=== PATIENT | female | born 1945 | race Caucasian/White ===

== ENCOUNTER 2018-09-12 07:44 | Day surgery (SDC) | payer MEDICARE, OTHER, SELFPAY ==
--- NOTE | 2018-09-12 08:02 | EKG12_ITS ---
Test Reason : PRE OP Blood Pressure : / mmHG Vent. Rate : 065 BPM Atrial Rate : 065 BPM P-R Int : 154 ms QRS Dur : 080 ms QT Int : 398 ms P-R-T Axes : 050 -22 013 degrees QTc Int : 413 ms Normal sinus rhythm with sinus arrhythmia Nonspecific ST abnormality Abnormal ECG Confirmed by PATRICIA HOWARD, JESSICA ([id number]), manuscript editor ROSA ELENA FISHER ([id number] on 09/14/2018 4:19:51 PM Referred By: Jyoti Seals Confirmed By:JESSICA GOMEZ MD
[2018-09-12 08:15] VITALS: BP 136/82; PULSE 71; RESP 14; TEMP 36.6; O2SAT 94; BMI 26.9
[2018-09-12 08:24] LABS: Prothrombin Time (Protime)PT. 13.6 SECONDS (11.7-14.9)
[2018-09-12 08:25] LABS: Partial Thromboplast Time 31.5 Seconds (24.1-36.2)
[2018-09-12 08:27] LABS: Hematocrit 34.7 % (37-47); Hemoglobin 11.3 g/dl (12.0-15.0); Mean Corp Hgb Conc 32.6 g/gl (32-36); Mean Corpuscular Hgb 19.3 pg (27.0-32.0); Mean Corpuscular Volume 59.2 fL (81-99); Mean Platelet Vol. 10.7 fl (6.2-12.0); RBC Distribution Width CV 19.1 % (11.6-14.6); RBC Distribution Width SD 37.4 fl (35.1-43.9); Red Blood Count 5.86 M/mm3 (4.2-5.4); White Blood Count 6.1 K/mm3 (4.4-11.0)
[2018-09-12 08:32] LABS: Anion Gap 10 (5-15); BUN 14 mg/dL (7-18); BUN/Creat Ratio 15.8 RATIO (10-20); Calcium,Total 8.9 mg/dL (8.5-10.1); Chloride 108 mmol/L (98-107); Creatinine, Serum 0.89 mg/dL (0.55-1.02); EST Glomerular Filtration Rate 67 mL/min (>60); Est Glom Filt Rate - Afr Amer 81 mL/min (>60); Estimated Creatinine Clearance 43.75 ml/min; Glucose 90 mg/dL (74-106); Potassium 3.8 mmol/L (3.5-5.1); Sodium Level 143 mmol/L (136-145)
[2018-09-12 08:35] LABS: Platelet Count 267 K/mm3 (150-450); Scan Indicated on CBC? Y/N YES- FLAGS NOTED
[2018-09-12] MEDS: Cefazolin 2 GM in 0.9% Normal Saline 100 ML IV (09:25)
[2018-09-12 09:50] VITALS: BP 136/82; BP 140/75; PULSE 82; RESP 16; TEMP 36.3; O2SAT 92
[2018-09-12 09:55] VITALS: BP 126/86; BP 136/82; PULSE 78; RESP 16; O2SAT 95
[2018-09-12 10:00] VITALS: BP 122/75; BP 136/82; PULSE 69; RESP 16; O2SAT 95
[2018-09-12 10:05] VITALS: BP 136/82; BP 139/77; PULSE 77; RESP 16; O2SAT 100
[2018-09-12 10:18] VITALS: BP 136/82
== END 2018-09-12 10:27 | disposition home or self-care (01) ==
LOC: SDC 07:46 → AC 07:49
PROVIDERS: Anesthesiology; Referring Provider Urology; Visit Provider Urology
PROC: (CPT 57260; principal; 2018-09-12 09:15)
DX: Z01.818 Encounter for other preprocedural examination (principal)
CPT/HCPCS: 36415; 80048; 85027; 85610; 85730; 93005; J7120

== ENCOUNTER 2018-09-15 11:03 | Observation (INO) | payer MEDICARE, OTHER, SELFPAY ==
[2018-09-15] VITALS (11 sets, daily range): BP systolic 92–139; BP diastolic 51–76; PULSE 58–95; RESP 14–18; TEMP 36.4–36.9; O2SAT 92–100; BMI 26.6; BMI 26.8
[2018-09-15] MEDS: Cefazolin 2 GM in 0.9% Normal Saline 100 ML IV (09:08)
[2018-09-15] MEDS: Lubricating Jelly 60 GM Tube 30 GM TOPICAL (09:30)
[2018-09-15] MEDS: Methylene Blue 1% 100 MG/10 ML VIAL (10:16)
[2018-09-15] MEDS: Estrogens,Conj. 1 Tube 1 DOSE (10:35)
--- NOTE | 2018-09-15 11:01 | OP.PCM_ITS ---
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 Post-Operative Diagnosis: same Surgery/Procedure Performed:: anterior repair with mesh, bilateral sacrospinous ligament fixation, midurethral sling insertion, cystoscopy. (Altis sling and Restorelle anterior wall mesh) Description of Surgical Findings:: The patient is a 73-year-old female presented to the office with multiple urologic issues including pelvic organ prolapse, stress incontinence, urge incontinence. After being fully evaluated with pelvic examination, urodynamics and cystoscopy, she agreed to proceed with surgical intervention. She was prepped for surgery using estrogen replacement for her vagina in addition to clear liquid diet and an enema. All risks benefits and alternatives were discussed in detail and she understood and agreed to proceed. The patient was taken to the operating room and placed on the operating room table. Anesthesia monitored the head, neck, airway, IV access, and vital signs throughout the case. Once anesthesia was appropriately administered the patient was prepped and draped in usual sterile fashion. An 18 [place] Barnes catheter was inserted to straight drain and the bladder was emptied. The anterior vaginal wall was identified, injected submucosally with 1% lidocaine with e pinephrine, and an incision was made in vertical fashion approximately 2-1/2 cm in length. Sharp and blunt dissection ensued until the ischial spines were palpable on either side and surrounding tissues were cleared and freed from the ligament. Using the Capio suturing device, the sacral spinous ligament was sutured to the mesh arms of the Restorelle mesh. The mesh was trimmed to fit Khloe Hallman's vagina. The apex of the vagina was attached to the mesh and sutured into place. The anterior portion of the mesh was then attached to the tissue surrounding the bladder neck and lateral fascia. The area was irrigated and the incision was closed using running interlocking 2-0 Vicryl suture. Attention was then turned towards the area of the mid urethra which was injected submucosally and a midline incision was made. Periurethral space was opened using blunt and sharp dissection. Using the trochars the alters mid urethral sling was then inserted into the obturator complexes bilaterally. The mesh was flat against the urethra without tension. This tensioning suture was cut in the midline incision was closed using running interlocking Vicryl. This time the Barnes catheter was removed and a cystourethroscopy was performed revealing bilateral blue ureteral jets. There were no foreign bodies within the urinary bladder including suture or mesh. There were no areas of hemorrhage. The cystoscope was removed and the Barnes catheter was replaced. The patient's vagina was packed with packing and estrogen cream. She was awakened and taken to the recovery room in good condition. biological sciences professor: bonny Type of Anesthesia:: General Special Medications: ancef, methylene blue, estrogen cream. Estimated Blood Loss (mL): 50cc Description of Procedure: no complications. see above. Grafts/Implants Used: Restorelle and Altis - Complications none - Admit VTE Documentation VTE Present on Admission: Yes VTE Mechan Device Prophylaxis: SCD's VTE Pharm Prophylaxis ordered?: No Reason prophylaxis not ordered:: Treatment Not Indicated
[2018-09-15] MEDS: Lactated Ringers 1,000 ML 100 ML IV ×2 (12:44→22:18)
[2018-09-15] MEDS: HYDROcodone Bitartrate/Apap 5/325 Tablet PO ×2 (14:41→21:00)
[2018-09-15] MEDS: Cefazolin 1 GM/50 ML BAG IV (16:46)
[2018-09-16] MEDS: Cefazolin 1 GM/50 ML BAG IV (01:43)
[2018-09-16 03:02] VITALS: BP 98/45; PULSE 82; RESP 16; TEMP 37.1; O2SAT 94
[2018-09-16] MEDS: HYDROcodone Bitartrate/Apap 5/325 Tablet PO ×2 (03:20→09:20)
[2018-09-16] MEDS: Lactated Ringers 1,000 ML 100 ML IV (08:30)
[2018-09-16 08:39] VITALS: BP 98/53; PULSE 71; RESP 16; TEMP 36.8; O2SAT 97
[2018-09-16 08:40] VITALS: PULSE 71
--- NOTE | 2018-09-16 08:43 | NURSING ---
Pt up to the bathroom and is unable to void. Notes bright red drainage in toilet. Pt does complain of pressure in vaginal/kings area. Pt is assisted to bed and checked for vaginal packing. Packing is present and it removed, single piece of dressing.
[2018-09-16] MEDS: Pantoprazole Sodium 40 MG Tablet PO (09:20)
[2018-09-16] MEDS: Enoxaparin 40 MG/0.4 ML Syringe SC (09:20)
--- NOTE | 2018-09-16 10:44 | PCM.PN.GU ---
Physical Exam Subjective: Feeling sore, but eating, drinking and walking ok. Has not voided yet, ready to go home after that. - Physical Exam Vital Signs Temp 98.2 F 09/16/18 08:39 Pulse 71 09/16/18 08:40 Resp 16 09/16/18 08:39 BP 98/53 L 09/16/18 08:39 Pulse Ox 97 09/16/18 08:39 Intake & Output 09/14/18 09/15/18 09/16/18 23:59 23:59 23:59 Intake Total 2299 / 2299 4 / 2064 Output Total 950 / 950 950 / 950 Balance 1349 / 1349 1114 / 1114 Weight: 64.5 kg Intake: Oral 200 / 200 700 / 700 IV fluid/meds 2098 1364 / 1364 IV #2 1700 / 1700 Output: Urine 950 / 950 950 / 950 General: Alert, Oriented x3, Cooperative, No apparent distress HEENT: Atraumatic, Normocephalic Oral: Moist Mucosa Neck: Supple Abdomen: Soft, Non Tender Extremities: No clubbing, No edema Skin: No rashes Musculoskeletal: No Tenderness to Palpation of Joints or Extremities, - - tender in right buttocks and left thigh, due to positioning and likely also the sacrospinous ligament fixation. Neurological: Cranial nerves II-XII grossly intact Psych/Mental Status: Normal Affect Medical Necessity - Tobacco Use Smoking Status: Never smoker Assessment/Plan All Active Problems Cystocele (Acute) Vaginal enterocele (Acute) Vaginal vault prolapse (Acute) Urethral hypermobility (Acute) Stress incontinence (Acute) Complete trial of void. Home today without or with belle. Call for appt in office.
--- NOTE | 2018-09-16 10:50 | PCM.DC.URO ---
Discharge Diet: No Restrictions Discharge Activity: May Not Drive, May not drive while taking narcotic pain medications., May Shower, - - May not take a tub bath. Nothing per vagina except estrogen cream is to be placed on sutures 3 times a week. No exersize or strenuous activity May resume sexual activity in: 8 weeks Lifting Restrictions: no lifting over 5 pounds including pulling and pushing Call your doctor if your incision/area has: Sudden Increased Bleeding, Foul Smelling Discharge Call your doctor if you observe: Fever of 101 or Higher, Inability to urinate, Inability to have a bowel movement, Using more than one pad per hour, Shortness of breath, Chest pain, Calf discomfort, Uncontrolled pain Allergies/Adverse Reactions: Allergies codeine Allergy (Verified 09/15/18 08:06) Unknown ibuprofen Allergy (Verified 09/15/18 08:06) Hives Sulfa (Sulfonamide Antibiotics) Allergy (Verified 09/15/18 08:06) Hives meperidine [From Demerol] Adverse Reaction (Verified 09/15/18 08:06) Nausea Medications to take at Discharge Aspirin E.C. [Ecotrin] 81 mg PO DAILY@0800 09/05/18 Cholecalciferol (Vitamin D3) [Vitamin D3] 2,000 unit PO DAILY 09/05/18 Folic Acid 1 mg PO DAILY@0800 09/05/18 Methotrexate [Xatmep] 0.6 mg SQ MO 09/05/18 Pantoprazole Sodium [Protonix] 40 mg PO DAILY 09/05/18 Cephalexin [Keflex] 500 mg PO Q12 3 Days #6 cap 09/16/18 Hydrocodone Bitart/Apap 5-325 [[place] 5/325] 1 - 2 tab PO Q6H PRN PRN 7 Days #30 tab 09/16/18 The following prescriptions were given: Hydrocodone Bitart/Apap 5-325 [[place] 5/325] 1 - 2 tab PO Q6H PRN PRN 7 Days #30 tab PRN Reason: Mild-moderate(pain scale 1-5) Cephalexin [Keflex] 500 mg PO Q12 3 Days #6 cap Primary Care Physician: [facility] ,Out of [Primary Care Provider] - Test Results: Test results from this visit will be discussed in further detail at your follow-up appointment, if applicable. Please Follow Up With: Jyoti Seals MD When: call for appt Proposed Discharge Date: 09/16/18
--- NOTE | 2018-09-16 10:53 | DCINST_ITS ---
Discharge Diet: No Restrictions Discharge Activity: May Not Drive, May not drive while taking narcotic pain medications., May Shower, - - May not take a tub bath. Nothing per vagina except estrogen cream is to be placed on sutures 3 times a week. No exersize or strenuous activity May resume sexual activity in: 8 weeks Lifting Restrictions: no lifting over 5 pounds including pulling and pushing Call your doctor if your incision/area has: Sudden Increased Bleeding, Foul Smelling Discharge Call your doctor if you observe: Fever of 101 or Higher, Inability to urinate, Inability to have a bowel movement, Using more than one pad per hour, Shortness of breath, Chest pain, Calf discomfort, Uncontrolled pain Allergies/Adverse Reactions: Allergies codeine Allergy (Verified 09/15/18 08:06) Unknown ibuprofen Allergy (Verified 09/15/18 08:06) Hives Sulfa (Sulfonamide Antibiotics) Allergy (Verified 09/15/18 08:06) Hives meperidine [From Demerol] Adverse Reaction (Verified 09/15/18 08:06) Nausea Medications to take at Discharge Aspirin E.C. [Ecotrin] 81 mg PO DAILY@0800 09/05/18 Cholecalciferol (Vitamin D3) [Vitamin D3] 2,000 unit PO DAILY 09/05/18 Folic Acid 1 mg PO DAILY@0800 09/05/18 Methotrexate [Xatmep] 0.6 mg SQ MO 09/05/18 Pantoprazole Sodium [Protonix] 40 mg PO DAILY 09/05/18 Cephalexin [Keflex] 500 mg PO Q12 3 Days #6 cap 09/16/18 Hydrocodone Bitart/Apap 5-325 [[place] 5/325] 1 - 2 tab PO Q6H PRN PRN 7 Days #30 tab 09/16/18 The following prescriptions were given: Hydrocodone Bitart/Apap 5-325 [[place] 5/325] 1 - 2 tab PO Q6H PRN PRN 7 Days #30 tab PRN Reason: Mild-moderate(pain scale 1-5) Cephalexin [Keflex] 500 mg PO Q12 3 Days #6 cap Primary Care Physician: [facility] ,Out of [Primary Care Provider] - Test Results: Test results from this visit will be discussed in further detail at your follow- up appointment, if applicable. Please Follow Up With: Jyoti Seals MD When: call for appt Proposed Discharge Date: 09/16/18
[2018-09-16 14:17] VITALS: BP 106/74; PULSE 64; RESP 18; TEMP 37; O2SAT 98
--- NOTE | 2018-09-22 10:09 | PCM.HP.BLA ---
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 Thank you.
--- OUTSIDE RECORDS SUMMARY | 2018-11-19 14:33 | XMS RPT_ITS ---
:1945 Author Organization OHIP Care Team Providers Name Role Phone Jyoti Seals Attending Unavailable Jyoti Seals Referring Unavailable SURJIT DE LA CRUZ Primary Care Unavailable Jyoti Seals Attending Unavailable Jyoti Seals Referring Unavailable SURJIT DE LA CRUZ Primary Care Unavailable Jyoti Seals Admitting Unavailable OLIVIER JUNG MD Attending Unavailable OLIVIER JUNG MD Referring Unavailable DAVID BARAHONA Primary Care Unavailable PROVIDER, UNKNOWN Admitting Unavailable PROVIDER, UNKNOWN Attending Unavailable DAVID LOAIZA Primary Care Unavailable PROVIDER, UNKNOWN Admitting Unavailable PROVIDER, UNKNOWN Attending Unavailable DAVID LOAIZA Primary Care Unavailable PROBLEMS PROBLEMS DATE TYPE CONDITION / CODE ATTENDING STATUS SOURCE 09/16/2018 Unknown N81.5 - Vaginal Jyoti Seals Active [place] enterocele / Community N81.5(ICD-10) Hospital Repository PROCEDURES PROCEDURES DATE CODE DESCRIPTION STATUS SOURCE 03/23/2018 09581(C4) TRACEY Loya SCRN [facility] Repository 03/06/2018 VJR330(C4) EXTERNAL SERVICE Completed [facility] REQUEST FOR CARE System Repository OUTSIDE THE 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 Thank you. 09/22/18 1010 <Electronically signed by Jyoti Seals MD> Date Jyoti Seals MD [facility] Signature: Date (if applicable) CC: Jyoti Seals MD; OUT OF TOWN DOCTOR Signed DISCHARGE INSTRUCTION Observed: 09/16/2018 Status: F Source: YOAN 10:53 AM [facility] Medical Records Department [address] [place] [address] Instructions for Home/Discharge Instructions 09/16/18 1050 MR#: [id number] Acct: [id number] Name: KHLOE MUNIZ Rep #: [id number] : 1945 73 From: Jyoti Seals MD PCP: OUT OF TOWN DOCTOR Status: ADM TYLER Discharge Diet: No Restrictions Discharge Activity: May Not Drive, May not drive while taking narcotic pain medications., May Shower, - - May not take a tub bath. Nothing per vagina except estrogen cream is to be placed on sutures 3 times a week. No exersize or strenuous activity May resume sexual activity in: 8 weeks Lifting Restrictions: no lifting over 5 pounds including pulling and pushing Call your doctor if your incision/area has: Sudden Increased Bleeding, Foul Smelling Discharge Call your doctor if you observe: Fever of 101 or Higher, Inability to urinate, Inability to have a bowel movement, Using more than one pad per hour, Shortness of breath, Chest pain, Calf discomfort, Uncontrolled pain Allergies/Adverse Reactions: Allergies codeine Allergy (Verified 09/15/18 08:06) Unknown ibuprofen Allergy (Verified 09/15/18 08:06) Hives Sulfa (Sulfonamide Antibiotics) Allergy (Verified 09/15/18 08:06) Hives meperidine [From Demerol] Adverse Reaction (Verified 09/15/18 08:06) Nausea Medications to take at Discharge Aspirin E.C. [Ecotrin] 81 mg PO DAILY@0800 09/05/18 Cholecalciferol (Vitamin D3) [Vitamin D3] 2,000 unit PO DAILY 09/05/18 Folic Acid 1 mg PO DAILY@0800 09/05/18 Methotrexate [Xatmep] 0.6 mg SQ MO 09/05/18 Pantoprazole Sodium [Protonix] 40 mg PO DAILY 09/05/18 Cephalexin [Keflex] 500 mg PO Q12 3 Days #6 cap 09/16/18 Hydrocodone Bitart/Apap 5-325 [Craig 5/325] 1 - 2 tab PO Q6H PRN PRN 7 Days #30 tab 09/16/18 The following prescriptions were given: Hydrocodone Bitart/Apap 5-325 [Craig 5/325] 1 - 2 tab PO Q6H PRN PRN 7 Days #30 tab PRN Reason: Mild-moderate(pain scale 1-5) Cephalexin [Keflex] 500 mg PO Q12 3 Days #6 cap Primary Care Physician: Juan Gan,Out of [Primary Care Provider] - Test Results: Test results from this visit will be discussed in further detail at your follow-up appointment, if applicable. Please Follow Up With: Jyoti Seals MD When: call for appt Proposed Discharge Date: 09/16/18 09/16/18 3930 <Electronically signed by Jyoti Seals MD> Date Jyoti Seals MD CC: OUT OF TOWN DOCTOR Signed OPERATIVE REPORT Observed: 09/15/2018 Status: F Source: MARYDEL 11:03 AM [facility] Medical Records Department [address] [place] [address] Operative Report 09/15/18 1050 MR#: [id number] Acct: [id number] Name: KHLOE MUNIZ Rep #: [id number] : 1945 73 From: Jyoti Seals MD PCP: OUT OF TOWN DOCTOR Status: [place] [facility] [place] Location: [place] [address] Problem List (1) Cystocele Status: Acute (2) Vaginal enterocele Status: Acute (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 Post-Operative Diagnosis: same Surgery/Procedure Performed:: anterior repair with mesh, bilateral sacrospinous ligament fixation, midurethral sling insertion, cystoscopy. (Altis sling and Restorelle anterior wall mesh) Description of Surgical Findings:: The patient is a 73-year-old female presented to the office with multiple urologic issues including pelvic organ prolapse, stress incontinence, urge incontinence. After being fully evaluated with pelvic examination, urodynamics and cystoscopy, she agreed to proceed with surgical intervention. She was prepped for surgery using estrogen replacement for her vagina in addition to clear liquid diet and an enema. All risks benefits and alternatives were discussed in detail and she understood and agreed to proceed. The patient was taken to the operating room and placed on the operating room table. Anesthesia monitored the head, neck, airway, IV access, and vital signs throughout the case. Once anesthesia was appropriately administered the patient was prepped and draped in usual sterile fashion. An 18 [place] Barnes catheter was inserted to straight drain and the bladder was emptied. The anterior vaginal wall was identified, injected submucosally with 1% lidocaine with epinephrine, and an incision was made in vertical fashion approximately 2-1/2 cm in length. Sharp and blunt dissection ensued until the ischial spines were palpable on either side and surrounding tissues were cleared and freed from the ligament. Using the Capio suturing device, the sacral spinous ligament was sutured to the mesh arms of the Restorelle mesh. The mesh was trimmed to fit Khloe Dodson's vagina. The apex of the vagina was attached to the mesh and sutured into place. The anterior portion of the mesh was then attached to the tissue surrounding the bladder neck and lateral fascia. The area was irrigated and the incision was closed using running interlocking 2-0 Vicryl suture. Attention was then turned towards the area of the mid urethra which was injected submucosally and a midline incision was made. Periurethral space was opened using blunt and sharp dissection. Using the trochars the alters mid urethral sling was then inserted into the obturator complexes bilaterally. The mesh was flat against the urethra without tension. This tensioning suture was cut in the midline incision was closed using running interlocking Vicryl. This time the Barnes catheter was removed and a cystourethroscopy was performed revealing bilateral blue ureteral jets. There were no foreign bodies within the urinary bladder including suture or mesh. There were no areas of hemorrhage. The cystoscope was removed and the Barnes catheter was replaced. The patient's vagina was packed with packing and estrogen cream. She was awakened and taken to the recovery room in good condition. colored liquid plastic applier: bonny Type of Anesthesia:: General Special Medications: ancef, methylene blue, estrogen cream. Estimated Blood Loss (mL): 50cc Description of Procedure: no complications. see above. Grafts/Implants Used: Restorelle and Altis - Complications none - Admit VTE Documentation VTE Present on Admission: Yes VTE Mechan Device Prophylaxis: SCD's VTE Pharm Prophylaxis ordered?: No Reason prophylaxis not ordered:: Treatment Not Indicated 09/15/18 1103 <Electronically signed by Jyoti Seals MD> Date Jyoti Seals MD CC: Jyoti Seals MD; OUT OF TOWN DOCTOR Signed 12 LEAD ELECTROCARDIOGRAM Observed: 09/14/2018 Status: F Source: YOAN 4:20 PM [facility] Cardiovascular Services [address] [place] [address] 12 Lead EKG 09/12/18 0814 MR#: [id number] Acct: [id number] Name: KHLOE MUNIZ Rep #: [id number] : 1945 73 From: Manny Gomez MD Attending Dr: Jyoti Seals MD Status: DEP [facility] Ordering Dr: Fazal Murray MD Date: 09/12/18 Location: [facility] Sex: F C Admitted: Test Reason : PRE OP Blood Pressure : / mmHG Vent. Rate : 065 BPM Atrial Rate : 065 BPM P-R Int : 154 ms QRS Dur : 080 ms QT Int : 398 ms P-R-T Axes : 050 -22 013 degrees QTc Int : 413 ms Normal sinus rhythm with sinus arrhythmia Nonspecific ST abnormality Abnormal ECG Confirmed by PATRICIA HOWARD, MANNY ([id number]), desk editor ROSA ELENA FISHER ([id number]) on 09/14/2018 4:19:51 PM Referred By: Jyoti Seals Confirmed By:MANNY GOMEZ MD 09/14/18 1619 Date Manny Gomez MD CC: Fazal Murray MD; Jyoti Seals MD; OUT OF TOWN DOCTOR Signed BASIC METABOLIC Collected: 09/12/2018 Status: F Source: YOAN PROFILE (BMP) 8:08 AM [facility] Order Comment: Reason for Laboratory Test preop TYPE CODE TESTS RESULT OUT OF RANGE REFERENCE UNITS LAB L501.0100 74-106 mg/dL Normal GLU 90 Result Comment: Please note revised GLUCOSE reference range effective 2017. LAB L501.1000 7-18 mg/dL Normal BUN 14 LAB L501.1100 0.55-1.02 mg/dL Normal CREAT,SERUM 0.89 Result Comment: The validity of the calculated GFR AND GFRAA in patients over 70 years has not been determined. Clinical correlation is essential. LAB L501.1110 >60 mL/min Normal EST GFR 67 Result Comment: Non- GFR Calc LAB L501.1115 >60 mL/min Normal EST GFR - AA 81 Result Comment: GFR Calc LAB L501.1255 ml/min Normal Estimated CRCL 43.75 LAB L501.1300 10-20 RATIO Normal BUN/CRE 15.8 LAB L501.2200 8.5-10 mg/dL Normal .1 CA 8.9 LAB L501.5300 136-14 mmol/L Normal 5 NA 143 LAB L501.5600 3.5-5. mmol/L Normal 1 K 3.8 LAB L501.5900 98-107 mmol/L High CL 108 LAB L501.6100 21.0-3 mmol/L Normal 2.0 CO2 25.0 LAB L501.6200 5-15 Normal GAP 10 Performed By: #### L500.2500 #### [facility] [address] [place], [place], [address] PROTHROMBIN TIME W/INR Collected: 09/12/2018 Status: F Source: YOAN 8:08 AM [facility] Order Comment: Reason for Laboratory Test preop TYPE CODE TESTS RESULT OUT OF RANGE REFERENCE UNITS LAB L300.4150 11.7-14.9 SECONDS Normal PROTIME 13.6 LAB L300.4200 Normal INR 1.0 Performed By: #### L300.3900, L300.4310 #### [facility] [address] [place], [place], [address] PARTIAL THROMBOPLAST Collected: 09/12/2018 Status: F Source: YOAN TIME 8:08 AM [facility] Order Comment: Reason for Laboratory Test preop TYPE CODE TESTS RESULT OUT OF RANGE REFERENCE UNITS LAB L300.4310 24.1-36.2 Seconds Normal PTT 31.5 Performed By: #### L300.3900, L300.4310 #### [facility] [address] [place], [address] CBC-COMPLETE BLOOD CNT Collected: 09/12/2018 Status: F Source: YOAN NO DIFF 8:08 AM [facility] Order Comment: Reason for Laboratory Test preop TYPE CODE TESTS RESULT OUT OF RANGE REFERENCE UNITS LAB L100.1000 4.4-11.0 K/mm3 Normal WBC 6.1 LAB L100.1200 4.2-5.4 M/mm3 High RBC 5.86 LAB L100.1300 12.0-15.0 g/dl Low HGB 11.3 LAB L100.1400 37-47 % Low HCT 34.7 LAB L100.1500 81-99 fL Low MCV 59.2 LAB L100.1600 27.0-32.0 pg Low MCH 19.3 LAB L100.1700 32-36 g/gl Normal MCHC 32.6 LAB L100.1810 11.6-14.6 % High RDW CV 19.1 LAB L100.1820 35.1-43.9 fl Normal RDW SD 37.4 LAB L100.1900 150-450 K/mm3 Normal PLT 267 LAB L100.2000 6.2-12.0 fl Normal MPV 10.7 Performed By: #### L100.0500, L100.4500 #### [facility] [address] [facility] [place], [place], [address] DIFFERENTIAL COMMENT Collected: 09/12/2018 Status: F Source: MARYDEL 8:08 AM [facility] Order Comment: Reason for Laboratory Test preop TYPE CODE TESTS RESULT OUT OF RANGE REFERENCE UNITS LAB L100.4500 Normal SMEAR COMMENT Result Comment: TEARDROP 1+ Performed By: #### L100.0500, L100.4500 #### [facility] [address] [place], [place], [address] STREP A SCRN Collected: 03/23/2018 Status: F Source: THE ([facility]) 2:[address] [facility] REPOSITORY TYPE CODE TESTS RESULT OUT OF REFERENCE UNITS RANGE LAB BA Negative STREP A Negative (1 SCREEN swab only) Result Comment: Culture not performed; one swab received. Performed By: #### MST #### [facility] [address] [place], [address] MAMM DIGITAL SCRN Observed: 02/14/2018 Status: F Source: [place] [facility] 3:33 PM [facility] REPOSITORY SCREENING BILATERAL DIGITAL MAMMOGRAM. Clinical Data: Screening. Comparison: 01/19/2017, 01/08/2016, 01/06/2015, 06/21/2013. Mammographic findings: There are scattered areas of fibroglandular density. No suspicious masses, architectural distortion, or suspicious calcifications are identified in either breast. There are 2 stable biopsy clips in the left breast. There has been no significant interval change. This examination was reviewed with the aid of CAD (computer assisted detection). IMPRESSION AND RECOMMENDATION: No mammographic evidence of malignancy. Recommendations are for the patient to return for annual screening mammography in one year or sooner if clinically indicated. Category 1: Negative False negative rate of mammography is approximately 10 to 20%. Management of a palpable abnormality must be based upon clinical grounds. Technologist: BERTIN Dictated By: GARRETT LEWIS MD Signed By: GARRETT LEWIS MD Signed Out: 02/14/18 15:31:41 ALLERGIES ALLERGIES DATE TYPE / CODE NAME / CODE REACTION SEVERITY SOURCE 09/15/2018 Drug Sulfa (Sulfonamide Hives Unknown [place] [facility] Allergy/416 Antibiotics)/F0010 Hospital 917853(SNOM 85555(RXNORM) Repository ED CT) 09/15/2018 Drug codeine/[id number] Unknown Unknown [place] [facility] Allergy/416 (RXNORM) Hospital 540821(SNOM Repository ED CT) 09/15/2018 Drug ibuprofen/[id number] Hives Unknown [place] [facility] Allergy/416 77(RXNORM) Hospital 702066(SNOM Repository ED CT) 09/15/2018 Drug meperidine/E630923 Nausea Unknown [place] [facility] Allergy/416 620(RXNORM) Hospital 487830(SNOM Repository ED CT) 06/28/2011 Drug SULFA ANTIBIOTICS [facility] Class/50628 System Repository 1003(SNOMED CT) 06/29/2001 DRUG IBUPROFEN [facility] INGREDI/419 System Repository 129140(SNOM ED CT) 06/29/2001 DRUG MEPERIDINE HCL [facility] INGREDI/419 System Repository 102585(SNOM ED CT) 06/29/2001 Drug OPIOID ANALGESICS [facility] Class/11050 System Repository 1003(SNOMED CT) ENCOUNTERS ENCOUNTERS ADMIT/DISCHARGE ACCOUNT NUMBER ADMITTING ENCOUNTER LOCATION SOURCE CLASS 09/15/2018/09/16/19 [id number] [place], Ambulatory [place] [facility] ding:NE9Poeo Repository : SM337Xft: 1 09/12/2018/09/12/19 [id number] Ambulatory [place] ding:SDCRoom Repository : AC20 03/23/2018/03/23/20 [id number] Unknown [facility]ulatory [facility] Repository 03/06/2018/03/06/20 [id number] Unknown Ambulatory [facility] Repository 02/13/2018/02/14/20 [id number] Ambulatory [address] [place] [address] g:[facility] Repository PAYERS PAYERS ENCOUNTER GUARANTOR PAYER SUBSCRIBER SOURCE 09/15/2018 [facility] [place] [facility] [id number] TESSIE Insurance:MEDICARE MOLNARDOB: [facility] PART A [facility] [id number] Repository [place] [address]Rde: Number: [id number] (HP) Date:2018-09-12 09/15/2018 Secondary [facility] [place] [facility] Insurance:KHOIolicálvaro ANDERSONB: Hospital Number: [id number] Repository [id number] Date:2015-82-40[address], [place] [address]ST: 09/15/2018 Tertiary NOT [facility] Insurance:SELF PAY Hospital INSURANCEPolicy Repository Number: Effective Date:2018-09-12 09/12/2018 [facility] [id number] TESSIE Insurance:MEDICARE MOLNARDOB: [facility] [id number] Repository [place] [address]Hbw: Number: [id number] (HP) Date:2018-08-15 09/12/2018 Secondary [facility] Insurance:AARPPolicy JUSTINB: Hospital Number: [id number] Repository [id number] Date:1253-02-55[address], [place] [address]DC: 09/12/2018 Tertiary NOT GIVENOFELIA [place] [facility] Insurance:SELF PAY Hospital INSURANCEPolicy Repository Number: Effective Date:2018-08-15 03/23/2018 KHLOE DODSON Primary KHLOE DODSON [facility] MOLNARDOB: Insurance:MEDICARE MOLNARDOB: System Repository [id number] PART APolicy Number: [id number] [place] [id number] [address] [place], [place] Date:2012[birth year]05-29 [place], [place] [address]Ytm: [phone]: [phone] (HP) (HP) (WP) 03/23/2018 Secondary KHLOE DODSON [facility] MOLNARDOB: System Repository Number: [id number] 5 [place] Date:2016-04-29[address].[place], [place] [address]KY[place], [place] [address]Pva: [phone]: [phone] (HP) (WP) 03/06/2018 KHLOE DODSON Primary KHLOE DODSON [facility] MOLNARDOB: Insurance:MEDICARE MOLNARDOB: System Repository [id number] PART APolicy Number: [id number] [place] [id number] [address] [place], [place] Date:2012[birth year]05-29 [place], [place] [address]Brh: [phone]: [phone] (HP) (HP) (WP) 03/06/2018 Secondary KHLOE DODSON [facility] Insurance:AARPPolicy MOLNARDOB: System Repository Number: [id number] 5 [place] Date:2016-04-29[address] [place], [place] [address]YQVSMM, [place] [address]Xof: [phone]: [phone] (HP) (WP)
== END 2018-09-16 14:53 | disposition home or self-care (01) ==
LOC: MS3 12:00
PROVIDERS: Admitting Provider Urology; Referring Provider Urology; Visit Provider Urology
PROC: (CPT 57260; principal; 2018-09-15 08:45)
DX: N81.11 Cystocele, midline (principal); N39.46 Mixed incontinence; N81.5 Vaginal enterocele; N36.41 Hypermobility of urethra; M06.9 Rheumatoid arthritis, unspecified; K58.9 Irritable bowel syndrome, unspecified
CPT/HCPCS: 00860; 57282; 57288; 96361; 96365; 96366; 96372; 97802; 99218; J7120; G0378; G0379; J2405